=== PATIENT | female | born 1950 | race Caucasian/White ===

== ENCOUNTER 2016-12-29 13:44 | Emergency (ER) | payer MEDICARE, OTHER ==
[2016-12-29] MEDS ORDERED: HYDROcodone/APAP 5-325MG 1 EACH TAB PO STA (14:37)
--- NOTE | 2016-12-29 14:37 | ED ---
General Adult HPI - General Chief complaint: Extremity Injury, Lower Stated complaint: Fell rt knee (P/O knee surgery 09/22/15) Time Seen by Provider: 12/29/16 14:16 Source: patient, RN notes reviewed, old records reviewed Mode of arrival: wheelchair Limitations: physical limitation - History of Present Illness Initial comments: This is a 66-year-old female here today for evaluation status post fall. Patient tripped and followed a mechanical fall. Walking with a cane. Patient has history of knee issues, history of knee surgery with recent right knee replacement 2 months ago. Patient states symptoms pain and swelling is decreased significant recent surgery. She did fall skinning of raising right knee and it has had increased swelling and pain since fall today. Patient denies any other injury or trauma - Related Data Allergies Allergy/AdvReac Type Severity Reaction Status Date / Time Sulfa (Sulfonamide Allergy Rash/Hives Verified 12/29/16 14:14 Antibiotics) Review of Systems ROS Statement: Those systems with pertinent positive or pertinent negative responses have been documented in the HPI. ROS Other: All systems not noted in ROS Statement are negative. Past Medical History Past Medical History: Cancer Additional Past Medical History / Comment(s): COLON CA 15 YEARS AGO History of Any Multi-Drug Resistant Organisms: None Reported Past Surgical History: Cardiac Valve Replacement Additional Past Surgical History / Comment(s): COLOSTOMY Past Psychological History: No Psychological Hx Reported Smoking Status: Never smoker Past Alcohol Use History: None Reported, Rare Past Drug Use History: None Reported General Exam Limitations: physical limitation General appearance: alert, in no apparent distress Head exam: Present: atraumatic, normocephalic, normal inspection Eye exam: Present: normal appearance, PERRL, EOMI. Absent: scleral icterus, conjunctival injection, periorbital swelling ENT exam: Present: normal exam, mucous membranes moist Neck exam: Present: normal inspection. Absent: tenderness, meningismus, lymphadenopathy Respiratory exam: Present: normal lung sounds bilaterally. Absent: respiratory distress, wheezes, rales, rhonchi, stridor Cardiovascular Exam: Present: regular rate, normal rhythm, normal heart sounds. Absent: systolic murmur, diastolic murmur, rubs, gallop, clicks GI/Abdominal exam: Present: soft, normal bowel sounds. Absent: distended, tenderness, guarding, rebound, rigid Extremities exam: Present: normal inspection, full ROM, normal capillary refill , other (Right knee abrasion anterior, good distal pulses, negative Kennedy Josie , no swelling or fusion of knee). Absent: tenderness, pedal edema, joint swelling, calf tenderness Back exam: Present: normal inspection Neurological exam: Present: alert, oriented X3, CN II-XII intact Psychiatric exam: Present: normal affect, normal mood Skin exam: Present: warm, dry, intact, normal color. Absent: rash Course Vital Signs 12/29/16 14:07 Temperature 97.9 F Pulse Rate 75 Respiratory 18 Rate Blood Pressure 142/57 O2 Sat by Pulse 98 Oximetry - Reevaluation(s) Reevaluation #1: 12/29/16 14:37 Patient's pain is improved Reevaluation #2: 12/29/16 15:02 Patient's pain is improved Medical Decision Making - Medical Decision Making 66-year-old ER status post fall, tripped and fall. Landing on right knee, recently surgically repaired knee, x-ray is normal, patient does have positive effusion will use ice and pain control, patient can be discharged home - Radiology Data Radiology results: report reviewed (X-ray right knee is negative for traumatic injury), image reviewed Disposition Clinical Impression: Fall, Effusion, right knee, Contusion of right knee Disposition: HOME SELF-CARE Condition: Good Instructions: Knee Sprain (ED), Knee Pain (ED), Swollen Knee Joint (ED) Referrals: None,Stated [Primary Care Provider] - 1-2 days
--- NOTE | 2016-12-29 14:44 | XR ---
EXAMINATION TYPE: XR knee complete RT DATE OF EXAM: 12/29/2016 2:37 PM CLINICAL HISTORY: Right knee pain since fall injury today. History of knee surgery September 2016 TECHNIQUE: Three views of the right knee are obtained. COMPARISON: None. FINDINGS: . The osseous structures are somewhat demineralized which is noted to lower radiographic s ensitivity. There is no acute fracture/dislocation clearly evident in right knee. Metallic hardware f rom knee arthroplasty appears satisfactory in position. Increased density suprapatellar bursa is cons istent with moderate to large joint effusion. Slightly more prominent lucency along lateral aspect of distal femoral component is noted, can be correlated with immediate postoperative films to assess ch zoe or stability. Mild to moderate anterior swelling is seen. IMPRESSION: There is no acute fracture or dislocation in the right knee clearly identified. Anterior soft tissue swelling and nonspecific suprapatellar joint effusion as well as other findings noted as detailed above.
[2016-12-29 15:24] VITALS: BP 148/55; PULSE 82; RESP 16; TEMP 98.1
== END 2016-12-29 15:23 | disposition home or self-care (01) ==
LOC: EC 13:44
DX: S80.01XA Contusion of right knee, initial encounter (principal); M25.461 Effusion, right knee; Z96.651 Presence of right artificial knee joint; Z85.038 Personal history of other malignant neoplasm of large intestine; Z88.2 Allergy status to sulfonamides; W01.0XXA Fall on same level from slipping, tripping and stumbling without subsequent striking against object, initial encounter
CPT/HCPCS: 99284